=== PATIENT | male | born 1955 | race Caucasian/White ===

== ENCOUNTER 2017-01-01 21:01 | Emergency (ER) | payer OTHER ==
[~2017-01-01] VITALS: Ht 188 cm; Wt 81.8 kg
[~2017-01-01 21:01] MED LIST: AMLO-147 PO; INSU100C SC; INSULIN LANTUS; SYN75 PO
[2017-01-01 21:20] VITALS: Ht 188 cm; Wt 81.8 kg
[2017-01-01] MEDS ORDERED: ONDANSETRON 4 MG INJ IV STA (21:28)
[2017-01-01] MEDS ORDERED: morphine 4 MG/ML VIAL IV STA (21:28)
[2017-01-01 22:09] LABS: BASOPHIL # 0.1 10^3/ul (0.0-0.1); BASOPHILS % 0.8 % (0.0-2.0); EOSINOPHILS # 0.1 10^3/ul (0.0-0.5); EOSINOPHILS % 2.1 % (0.0-7.0); HEMATOCRIT 44.1 % (42.0-52.0); HEMOGLOBIN 15.3 g/dl (14.0-18.0); LYMPHOCYTES # 1.8 10^3/ul (0.8-2.9); LYMPHOCYTES % 28.2 % (15.0-51.0); MEAN CORPUSCULAR HEMOGLOBIN 33.9 pg (29.0-33.0); MEAN CORPUSCULAR HGB CONC 34.8 g/dl (32.0-37.0); MEAN CORPUSCULAR VOLUME 97.6 fl (82.0-101.0); MEAN PLATELET VOLUME 9.3 fl (7.4-10.4); MONOCYTE # 0.7 10^3/ul (0.3-0.9); MONOCYTES % 11.5 % (0.0-11.0); NEUTROPHIL # 3.7 10^3/ul (1.6-7.5); NEUTROPHILS % 57.4 % (39.0-77.0); PLATELET COUNT 271 10^3/UL (140-440); RED BLOOD COUNT 4.52 10^6/ul (4.70-6.10); RED CELL DISTRIBUTION WIDTH 13.7 % (11.5-14.5); UNCORRECTED WBC 6.5 10^3/ul (4.8-10.8); WHITE BLOOD COUNT 6.5 10^3/ul (4.8-10.8)
[2017-01-01 22:13] LABS: CONDITION 1
[2017-01-01 22:14] LABS: ALBUMIN 3.5 g/dl (3.3-4.9); POTASSIUM 4.5 mmol/L (3.5-5.1)
[2017-01-01 22:15] LABS: INR 1.02; PARTIAL THROMBOPLASTIN TIME 29.6 Sec (25.0-35.0); PROTIME 13.4 Sec (12.2-14.2)
[2017-01-01 22:16] LABS: CREATININE 0.73 mg/dl (0.61-1.24)
[2017-01-01 22:17] LABS: ALBUMIN/GLOBULIN RATIO 1.25; BILIRUBIN,INDIRECT 0.2 mg/dl (0-1.1); BILIRUBIN,TOTAL 0.2 mg/dl (0.2-1.3); TOTAL PROTEIN 6.3 g/dl (6.1-8.1)
[2017-01-01] MEDS ORDERED: BENA40TA41 PO (22:20)
--- NOTE | 2017-01-01 22:36 | RADRPT ---
PROCEDURE: XR Chest. CLINICAL INDICATION: Fall with chest pain TECHNIQUE: A single portable view of the chest was obtained. COMPARISON: None FINDINGS: The aorta is tortuous and atherosclerotic. The cardiomediastinal silhouette is otherwise within nor mal limits. The lungs and pleural spaces are clear. Left posterior fifth and seventh rib fractures are seen. The remaining soft tissues and osseous structures demonstrate benign age related senescent changes. IMPRESSION: Left posterior fifth through seventh rib fractures. RPTAT: HPNM Physician Ramon Date Time Electronically viewed and signed by Lex Clarke Physician on 01/01/2017 22:35 /
--- NOTE | 2017-01-01 22:40 | RADRPT ---
PROCEDURE: XR Hip. CLINICAL INDICATION: Left hip pain. Trauma TECHNIQUE: AP and frog-leg lateral views of the left hip were obtained. COMPARISON: None FINDINGS: A left femoral neck fracture is seen with superior lateral displacement. No other fracture is seen. No dislocation is seen. The osseous structures are well mineralized. The soft tissue structures are intact. IMPRESSION: Left femoral neck fracture with superior lateral displacement. RPTAT: HPNM Physician Ramon Date Time Electronically viewed and signed by Lex Clarke Physician on 01/01/2017 22:40 /
--- NOTE | 2017-01-01 22:41 | RADRPT ---
PROCEDURE: XR Pelvis. CLINICAL INDICATION: Pelvic pain. TECHNIQUE: Single AP view of the pelvis was obtained. COMPARISON: None FINDINGS: A left femoral neck fracture is seen with superior lateral displacement. No other fracture is seen. No dislocation is seen. The soft tissue structures are intact. IMPRESSION: Left femoral neck fracture with superior lateral displacement. RPTAT: HPNM Physician Ramon Date Time Electronically viewed and signed by Lex Clarke Physician on 01/01/2017 22:41 /
[2017-01-01] MEDS ORDERED: HYDROmorphONE 1 MG/ML SYG IV STA (22:54)
--- NOTE | 2017-01-01 23:59 | ERA ---
ER Documentation Chief Complaint Date/Time DATE: 01/01/17 TIME: 21:20 Chief Complaint FELL ONTO BOTH HANDS, LEFT HIP PAIN HPI 61-year-old male with history of diabetes mellitus, hypertension, hypothyroidism and CVA brought to the ED via rescue ambulance after her trip and fall walking the street. He complains of severe, sharp, nonradiating left hip pain which is exacerbated by any kind of movement. He is unable to weight- bear a walk. Denies head injury, headache, syncope or loss of consciousness. No chest pain or palpitations. Denies shortness of breath or cough. No abdominal pain, nausea vomiting. No fevers or chills. ROS All systems reviewed and are negative except as per history of present illness. Medications Home Meds Reported Medications Benazepril Hcl* (Benazepril Hcl*) 40 Mg Tablet, 40 MG PO QAM, #30 TAB 01/01/17 Levothyroxine Sodium* (Synthroid*) 75 Mcg Tablet, 75 MCG PO AC BREAKFAST, TAB 06/30/14 Amlodipine Besylate* (Amlodipine Besylate*) 10 Mg Tablet, 10 MG PO DAILY, TAB 06/30/14 Insulin Lispro (Humalog) 100 U/Ml Cartridge, 60 UNITS SC DAILY 02/09/12 Discontinued Reported Medications [Insulin Lantus] No Conflict Check 01/30/12 Allergies Allergies: Coded Allergies: No Known Allergy (Unverified , 01/01/17) PMhx/Soc Reviewed in chart. As per HPI. History of Surgery: No Anesthesia Reaction: No Hx Neurological Disorder: Yes (HX OF STROKE) Hx Respiratory Disorders: No Hx Cardiac Disorders: Yes (HTN) Hx Psychiatric Problems: No Hx Miscellaneous Medical Probl: Yes (DAIBETES, HTN) Hx Alcohol Use: Yes (LAST TODAY AT 4PM) Hx Substance Use: No Hx Tobacco Use: No Smoking Status: Never smoker FmHx Not relevant to presenting complaint. Physical Exam Vitals Vital Signs Date Time Temp Pulse Resp B/P Pulse Ox O2 Delivery O2 Flow Rate FiO2 01/02/17 01:40 88 20 149/77 94 Room Air 01/02/17 00:45 80 16 133/75 100 Room Air 01/01/17 23:00 90 16 142/90 100 Room Air 01/01/17 21:20 97.7 92 16 133/78 99 Physical Exam Const: Alert, moderate distress due to pain. Head: Atraumatic Eyes: Pupils equal reactive to light, extraocular movements are intact. Normal Conjunctiva ENT: Normal External Ears, Nose and Mouth. Neck: Full range of motion. Nontender. Full range of motion. Resp: Breath sounds are equal and clear to auscultation bilaterally. No rib tenderness or crepitus. Cardio: Regular rate and rhythm, no murmurs Abd: Soft, non tender, non distended. Normal bowel sounds. No masses or abnormal pulsations. Skin: No petechiae or rashes Back: No midline or flank tenderness Ext: Left lower extremity shortened and externally rotated. Left groin tenderness. Distal neurovascular intact. Neur: Awake and alert. CN II-XII intact. No focal deficit observed. Psych: Normal Mood and Affect Result Diagram: 01/01/17213601/01/172136 Results 24 hrs Laboratory Tests Test 01/01/17 21:37 01/01/17 22:13 01/02/17 00:00 Activated Partial Thromboplast Time 29.6Sec Alanine Aminotransferase (ALT/SGPT) 36IU/L Albumin 3.5g/dl Albumin/Globulin Ratio 1.25 Alkaline Phosphatase 95IU/L Anion Gap 20 Aspartate Amino Transf (AST/SGOT) 73IU/L Basophils # 0.110^3/ul Basophils % 0.8% Blood Urea Nitrogen 9mg/dl Calcium Level 9.0mg/dl Carbon Dioxide Level 26mmol/L Chloride Level 96mmol/L Creatinine 0.73mg/dl Direct Bilirubin 0.00mg/dl Eosinophils # 0.110^3/ul Eosinophils % 2.1% Globulin 2.80g/dl Glucose Level 276mg/dl Hematocrit 44.1% Hemoglobin 15.3g/dl INR International Normalized Ratio 1.02 Indirect Bilirubin 0.2mg/dl Lymphocytes # 1.810^3/ul Lymphocytes % 28.2% Mean Corpuscular Hemoglobin 33.9pg Mean Corpuscular Hemoglobin Concent 34.8g/dl Mean Corpuscular Volume 97.6fl Mean Platelet Volume 9.3fl Monocytes # 0.710^3/ul Monocytes % 11.5% Neutrophils # 3.710^3/ul Neutrophils % 57.4% Nucleated Red Blood Cells # 0.010^3/ul Nucleated Red Blood Cells % 0.0/100WBC Platelet Count 67106^3/UL Potassium Level 4.5mmol/L Prothrombin Time 13.4Sec Prothrombin Time Ratio 1.0 Red Blood Count 4.5210^6/ul Red Cell Distribution Width 13.7% Sodium Level 137mmol/L Total Bilirubin 0.2mg/dl Total Protein 6.3g/dl White Blood Count 6.510^3/ul Bedside Glucose 257mg/dL Urine Bilirubin NEGATIVE Urine Clarity CLEAR Urine Color LT. YELLOW Urine Glucose >=1000% Urine Hemoglobin NEGATIVE Urine Ketones 15 Urine Leukocyte Esterase NEGATIVE Urine Nitrite NEGATIVE Urine Specific [place] 1.010 Urine Total Protein NEGATIVE Urine Urobilinogen 0.2 E.U./dL Urine pH 6.0 Current Medications Medications (Trade) Dose Ordered Sig/Jose Raul Route PRN Reason Start Time Stop Time Status Last Admin Dose Admin Morphine Sulfate (morphine) 4 mg ONCE STAT IV 01/01/17 21:28 01/01/17 21:29 DC 01/01/17 21:37 Ondansetron HCl (Zofran Inj) 4 mg ONCE STAT IV 01/01/17 21:28 01/01/17 21:29 DC 01/01/17 21:37 Hydromorphone HCl (Dilaudid) 1 mg ONCE STAT IV 01/01/17 22:54 01/01/17 22:55 DC 01/01/17 22:56 Ondansetron HCl (Zofran Inj) 4 mg BRIDGE ORDER PRN IV NAUSEA AND/OR VOMITING 01/02/17 00:30 01/02/17 05:30 DC Acetaminophen (Tylenol Tab) 650 mg ER BRIDGE PRN PO MILD PAIN/FEVER 01/02/17 00:30 01/02/17 05:30 DC EKG: TIME: 00:04. Sinus rhythm. Ventricular rate 88. Biatrial enlargement. Q waves in leads V1 through V3. No acute ST segment elevation or depression. No ectopy. EP Interpretation: Abnormal EKG. IMAGING: PROCEDURE: XR Chest. CLINICAL INDICATION: Fall with chest pain TECHNIQUE: A single portable view of the chest was obtained. COMPARISON: None FINDINGS: The aorta is tortuous and atherosclerotic. The cardiomediastinal silhouette is otherwise within normal limits. The lungs and pleural spaces are clear. Left posterior fifth and seventh rib fractures are seen. The remaining soft tissues and osseous structures demonstrate benign age related senescent changes. IMPRESSION: Left posterior fifth through seventh rib fractures. RPTAT: HPNM Physician Ramon Date Time Electronically viewed and signed by Lex Clarke Physician on 01/01/2017 22 :35 / [ ] Procedures/MDM DOCUMENTS REVIEWED: ED nurse, prior records. Patient was admitted in June 2014 for diabetic ketoacidosis. MEDICAL DECISION MAKIN-year-old male with history of diabetes mellitus, hypertension, hypothyroidism and CVA brought to the ED via rescue ambulance after her trip and fall walking the street. Patient sustained a closed, left subcapital femoral neck fracture with moderate displacement. Patient denies head injury, headache or loss of consciousness hence neuroimaging not indicated. No syncope or cardiac dysrhythmia. Hyperglycemia without DKA. Patient will be admitted for glycemic control, urgent orthopedic intervention, further evaluation and management. Counseled patient regarding diagnosis, diagnostic results and plan for admission. CALLS/CONSULTS: Time 23:00, Dr. Schuster, Will consult. CALLS/CONSULTS: Time 00:05, Dr. Alston, Recommends [facility]. PATIENT CARE TRANSITIONED: Time: 00:10, Dr. Alston. Departure Diagnosis: Primary Impression: Left displaced femoral neck fracture Qualified Code: S72.002A - Left displaced femoral neck fracture, closed, initial encounter Additional Impressions: Hyperglycemia due to type 1 diabetes mellitus Hypertension Qualified Code: I10 - Essential hypertension Fall Qualified Code: W19.XXXA - Fall, initial encounter Condition: Serious SAURABH MUNGUIA MD Jan 01, 2017 23:59
[2017-01-02 00:11] LABS: ADD UMIC NO; URINE BILIRUBIN (Dip) NEGATIVE (NEGATIVE); URINE BLOOD (Dip) NEGATIVE (NEGATIVE); URINE COLOR LT. YELLOW (YELLOW); URINE GLUCOSE (Dip) >=1000 % (NEGATIVE); URINE KETONES (Dip) 15 (NEGATIVE); URINE LEUKOCYTE ESTERASE (Dip) NEGATIVE (NEGATIVE); URINE NITRITE (Dip) NEGATIVE (NEGATIVE); URINE TOTAL PROTEIN (Dip) NEGATIVE (NEGATIVE); URINE UROBILINOGEN (Dip) 0.2 E.U./dL (0.1-1.0)
[2017-01-02] MEDS ORDERED: ONDANSETRON 4 MG INJ IV PRN (00:30)
[2017-01-02] MEDS ORDERED: ACETAMINOPHEN 325 MG TAB PO PRN (00:30)
[2017-01-02 01:40] VITALS: BP 149/77; PULSE 88; RESP 20
== END 2017-01-02 02:37 | disposition short-term general hospital (02) ==
LOC: E/R 21:01
DX: S72.002A Fracture of unspecified part of neck of left femur, initial encounter for closed fracture (principal); I10 Essential (primary) hypertension; E10.65 Type 1 diabetes mellitus with hyperglycemia; E03.9 Hypothyroidism, unspecified; W01.0XXA Fall on same level from slipping, tripping and stumbling without subsequent striking against object, initial encounter; Y92.410 Unspecified street and highway as the place of occurrence of the external cause; Z79.4 Long term (current) use of insulin
CPT/HCPCS: 36415; 71010; 72170; 73510; 80053; 81003; 82962; 85025; 85610; 85730; 93005; 96374; 96375; 99285; J1170; J2270; J2405

== ENCOUNTER 2017-01-27 23:02 | Emergency (ER) | payer OTHER ==
[~2017-01-27] VITALS: Ht 172.7 cm; Wt 75.0 kg
[~2017-01-27 23:02] MED LIST changes: +BENA40TA41 PO; -INSULIN LANTUS
[2017-01-27 23:04] VITALS: Ht 172.7 cm; Wt 75.0 kg
--- NOTE | 2017-01-28 00:32 | ERD ---
ER Documentation Chief Complaint Date/Time DATE: 01/28/17 TIME: 00:29 Chief Complaint pain at site of surgical wound, needs stitches removed, no drainage/fever HPI 51-year-old male presents here in emergency department for staple removal, patient had a hip surgery done 3 weeks ago, was in a convalescent home, this was not removed, patient states that because it was a major surgery, they recommended to take the elissa later, patient denies any discharge area, patient. Patient denies any pain. Patient denies any fever or chills. ROS All systems reviewed and are negative except as per history of present illness. Medications Home Meds Reported Medications Benazepril Hcl* (Benazepril Hcl*) 40 Mg Tablet, 40 MG PO QAM, #30 TAB 01/01/17 Levothyroxine Sodium* (Synthroid*) 75 Mcg Tablet, 75 MCG PO AC BREAKFAST, TAB 06/30/14 Amlodipine Besylate* (Amlodipine Besylate*) 10 Mg Tablet, 10 MG PO DAILY, TAB 06/30/14 Insulin Lispro (Humalog) 100 U/Ml Cartridge, 60 UNITS SC DAILY 02/09/12 Allergies Allergies: Coded Allergies: No Known Allergy (Unverified , 01/01/17) PMhx/Soc History of Surgery: No Anesthesia Reaction: No Hx Neurological Disorder: Yes (HX OF STROKE) Hx Respiratory Disorders: No Hx Cardiac Disorders: Yes (HTN) Hx Psychiatric Problems: No Hx Miscellaneous Medical Probl: Yes (DAIBETES, HTN) Hx Alcohol Use: Yes (LAST TODAY AT 4PM) Hx Substance Use: No Hx Tobacco Use: No FmHx Family History: No coronary disease, No diabetes, No other Physical Exam Vitals Vital Signs Date Time Temp Pulse Resp B/P Pulse Ox O2 Delivery O2 Flow Rate FiO2 01/27/17 23:04 98.1 90 18 108/59 98 Physical Exam GENERAL: The patient is well developed and appropriate for usual state of health, in no apparent distress. CHEST: Clear to auscultation bilaterally. There are no rales, wheezes or rhonchi. HEART: Regular rate and rhythm. No murmurs, clicks, rubs or gallops. No S3 or S4. ABDOMEN: Soft, nontender and nondistended. Good bowel sounds. No rebound or guarding. No gross peritonitis. No gross organomegaly or masses. No Reed sign or McBurney point tenderness. BACK: No midline or flank tenderness. EXTREMITIES: Equal pulses bilaterally. There is no peripheral clubbing, cyanosis or edema. No focal swelling or erythema. Full range of motion. Grossly neurovascularly intact. NEURO: Alert and oriented. Cranial nerves 2-12 intact. Motor strength in all 4 extremities with 5/5 strength. Sensation grossly intact. Normal speech and gait. SKIN: noted 18 elissa in the left hip area wound, is healing well, no redness , no discharge coming from the area, no gaping of the wound, no symptoms of any infection, nontender. there is no apparent rash or petechia. the skin is warm and dry. HEMATOLOGIC AND LYMPHATIC: There is no evidence of excessive bruising or lymphedema. No gross cervical, axillary, or inguinal lymphadenopathy. Procedures/MDM Procedure note: After patient's verbal consent, the wound was cleaned with diluted Betadine,. After Cleaning the wound, the elissa were removed without any difficulty. Patient tolerated procedure well. Medical Decision making: Patient's left hip wound elissa were removed without any difficulty. No symptoms of any infection on her wound, no gaping of the wound, no discharge, nontender on palpation. Patient was advised to do wound care on affected area. Patient was advised to return to emergency department for any worsening symptoms. Follow-up with primary care doctor in 3-4 days for reevaluation of symptoms. Departure Diagnosis: Primary Impression: Encounter for removal of elissa Condition: Stable Patient Instructions: Staple Removal, No Complication TOO DAY NP Jan 28, 2017 00:32
[2017-01-28 01:37] VITALS: BP 116/75; PULSE 85; TEMP 99
== END 2017-01-28 01:52 | disposition home or self-care (01) ==
LOC: FTE 23:02
DX: Z48.02 Encounter for removal of sutures (principal); I10 Essential (primary) hypertension; E10.9 Type 1 diabetes mellitus without complications; E03.9 Hypothyroidism, unspecified; Z79.4 Long term (current) use of insulin
CPT/HCPCS: 99281

== ENCOUNTER 2017-10-16 16:44 | Emergency (ER) | payer OTHER ==
[~2017-10-16] VITALS: Ht 177.8 cm; Wt 81.7 kg
[2017-10-16 17:04] VITALS: Ht 177.8 cm; Wt 81.7 kg
--- NOTE | 2017-10-17 02:06 | ERD ---
ER Documentation Chief Complaint Chief Complaint b leg swelling x 4 months HPI 62-year-old male presents here to emergency department for complaints of bilateral lower leg swelling on and off for the last 4 months. Patient has had the same type of issue before, patient was sent here from urgent care to rule out DVT. Patient has history of dependent edema before, also had history of cellulitis before. Patient is diabetic. Patient is complaining of lower leg swelling, mild redness, pain, sharp pain, 6/10 scale, accompanied with swelling. Patient did not take any medications to help with symptoms. Patient denies any fever or chills. ROS All systems reviewed and are negative except as per history of present illness. Medications Home Meds Reported Medications Benazepril Hcl* (Benazepril Hcl*) 40 Mg Tablet, 40 MG PO QAM, #30 TAB 01/01/17 Levothyroxine Sodium* (Synthroid*) 75 Mcg Tablet, 75 MCG PO AC BREAKFAST, TAB 06/30/14 Amlodipine Besylate* (Amlodipine Besylate*) 10 Mg Tablet, 10 MG PO DAILY, TAB 06/30/14 Insulin Lispro (Humalog) 100 U/Ml Cartridge, 60 UNITS SC DAILY 02/09/12 Allergies Allergies: Coded Allergies: No Known Allergy (Unverified , 01/01/17) PMhx/Soc History of Surgery: Yes (left hip surgery) Anesthesia Reaction: No Hx Neurological Disorder: Yes (HX OF STROKE) Hx Respiratory Disorders: No Hx Cardiac Disorders: Yes (htn, dm) Hx Psychiatric Problems: No Hx Miscellaneous Medical Probl: Yes (hypothyroid) Hx Alcohol Use: No Hx Substance Use: No Hx Tobacco Use: No FmHx Family History: No coronary disease, No diabetes, No other Physical Exam Vitals Vital Signs Date Time Temp Pulse Resp B/P Pulse Ox O2 Delivery O2 Flow Rate FiO2 10/16/17 17:04 99.1 98 18 135/71 95 Physical Exam GENERAL: The patient is well developed and appropriate for usual state of health, in no apparent distress. CHEST: Clear to auscultation bilaterally. There are no rales, wheezes or rhonchi. HEART: Regular rate and rhythm. No murmurs, clicks, rubs or gallops. No S3 or S4. ABDOMEN: Soft, nontender and nondistended. Good bowel sounds. No rebound or guarding. No gross peritonitis. No gross organomegaly or masses. No Reed sign or McBurney point tenderness. BACK: No midline or flank tenderness. EXTREMITIES: Noted bilateral lower leg swelling, no pitting edema noted, mild redness noted. Negative Homans sign. Equal pulses bilaterally. There is no peripheral clubbing, cyanosis or edema. No focal swelling or erythema. Full range of motion. Grossly neurovascularly intact. NEURO: Alert and oriented. Cranial nerves 2-12 intact. Motor strength in all 4 extremities with 5/5 strength. Sensation grossly intact. Normal speech and gait. SKIN: There is no apparent rash or petechia. The skin is warm and dry. HEMATOLOGIC AND LYMPHATIC: There is no evidence of excessive bruising or lymphedema. No gross cervical, axillary, or inguinal lymphadenopathy. Results 24 hrs PROCEDURE: ULTRASOUND BILATERAL LOWER EXTREMITY VENOUS CLINICAL INDICATION: 62-year-old male with lower extremity swelling. TECHNIQUE: Multiple sonographic images of the bilateral lower extremity deep venous system was obtained utilizing grayscale, color-flow, compressive sonography and doppler imaging with augmentation. The images were reviewed on a PACS workstation. COMPARISON: None. FINDINGS: There is normal compressibility and flow within the common femoral, deep femoral , superficial femoral, popliteal, posterior tibial and peroneal veins. IMPRESSION: No sonographic evidence for deep venous thrombosis. .Jeovany Campbell MD, Date Time Electronically viewed and signed by .Jeovany Campbell MD, on 10/17/2017 02:28 .M/ CC: TOO DAY [employer] Procedures/MDM Medical Decision Making: Patient's pain is most likely consistent with dependent peripheral edema and this mild form of cellulitis, no DVT, no Homans sign.. There is no suspicion for neurovascular compromise. Patient has intact sensation and circulation of the affected extremity. There is low suspicion for septic arthritis. No symptoms of any sepsis at this time, patient appears once hemodynamically stable. Disposition: Home. Patient is given prescription for ibuprofen for pain, Keflex and Bactrim. Patient was advised to elevate the affected area and apply ice on affected area. Patient was advised that if symptoms are worse, numbness, tingling, high fever, unable to move joint, worsening symptoms, to return to emergency department immediately. Otherwise, patient is advised to follow up with the primary care doctor in 5-7 days for reevaluation of symptoms. Disclaimer: Inadvertent spelling and grammatical errors are likely due to EHR/ dictation software use and do not reflect on the overall quality of patient care. Also, please note that the electronic time recorded on this note does not necessarily reflect the actual time of the patient encounter. Departure Diagnosis: Primary Impression: Peripheral edema Additional Impression: Cellulitis Site of cellulitis: extremity Site of cellulitis of extremity: lower extremity Laterality: unspecified laterality Qualified Code: L03.119 - Cellulitis of lower extremity, unspecified laterality Condition: Stable Patient Instructions: Cellulitis, Peripheral Edema, Bilateral Additional Instructions: Patient is given prescription for ibuprofen for pain, Keflex and Bactrim. Patient was advised to elevate the affected area and apply ice on affected area. Patient was advised that if symptoms are worse, numbness, tingling, high fever, unable to move joint, worsening symptoms, to return to emergency department immediately. Otherwise, patient is advised to follow up with the primary care doctor in 5-7 days for reevaluation of symptoms. TOO DAY NP Oct 17, 2017 02:06
--- NOTE | 2017-10-17 02:28 | RADRPT ---
PROCEDURE: ULTRASOUND BILATERAL LOWER EXTREMITY VENOUS CLINICAL INDICATION: 62-year-old male with lower extremity swelling. TECHNIQUE: Multiple sonographic images of the bilateral lower extremity deep venous system was obt ained utilizing grayscale, color-flow, compressive sonography and doppler imaging with augmentation. The images were reviewed on a PACS workstation. COMPARISON: None. FINDINGS: There is normal compressibility and flow within the common femoral, deep femoral, superficial femora l, popliteal, posterior tibial and peroneal veins. IMPRESSION: No sonographic evidence for deep venous thrombosis. .Jeovany Campbell MD, MD Date Time Electronically viewed and signed by .Jeovany Campbell MD, MD on 10/17/2017 02:28 .Angelica/
[2017-10-17] MEDS ORDERED: SULF1TAB31 PO (03:08)
[2017-10-17] MEDS ORDERED: IBUP-1542 PO (03:08)
[2017-10-17] MEDS ORDERED: CEPH-443 PO (03:08)
== END 2017-10-17 03:29 | disposition home or self-care (01) ==
LOC: FTE 16:44
DX: L03.115 Cellulitis of right lower limb (principal); L03.116 Cellulitis of left lower limb; E11.9 Type 2 diabetes mellitus without complications; I10 Essential (primary) hypertension; E03.9 Hypothyroidism, unspecified; Z79.4 Long term (current) use of insulin
CPT/HCPCS: 93970; 99284

== ENCOUNTER 2018-04-14 20:56 | Emergency (ER) | END 2018-04-15 02:54 | disposition home or self-care (01) ==

== ENCOUNTER 2018-04-22 11:38 | Emergency (ER) | END 2018-04-22 16:59 | disposition left against medical advice (07) ==

== ENCOUNTER 2018-04-24 09:48 | Inpatient (IN) | END 2018-04-25 14:05 | disposition home or self-care (01) | DRG 638 ==

== ENCOUNTER 2018-06-17 01:40 | Inpatient (IN) | END 2018-06-21 10:55 | disposition home or self-care (01) | DRG 638 ==